=== PATIENT | female | born 1965 | race Caucasian/White ===

== ENCOUNTER 2020-02-15 15:05 | Outpatient (CLI) | payer BC, SELFPAY ==
--- NOTE | ~2020-02-15 | XR_ITS ---
EXAMINATION: XR hip RT min 2V DATE: 02/15/2020 16:25 INDICATION: Right hip joint pain. TECHNIQUE: 2 views of right hip were obtained. COMPARISON: None. FINDINGS: Bone alignment is normal. No fracture. There is mild right hip osteoarthritis. IMPRESSION: 1. Mild right hip osteoarthritis. Reviewed, dictated and finalized at location A.
--- NOTE | ~2020-02-15 | XR_ITS ---
EXAMINATION: XR hand LT 2V DATE: 02/15/2020 16:25 INDICATION: Arthralgias. TECHNIQUE: 2 views of left hand were obtained. COMPARISON: None. FINDINGS: Bone alignment is normal. No fracture. There is mild osteoarthritis of second and third met acarpophalangeal joints and fourth distal interphalangeal joint. IMPRESSION: 1. Mild polyarticular osteoarthritis. Reviewed, dictated and finalized at location A.
--- NOTE | ~2020-02-15 | XR_ITS ---
EXAMINATION: XR foot LT 2V DATE: 02/15/2020 16:25 INDICATION: Left foot joint pain. TECHNIQUE: 2 views of left foot were obtained. COMPARISON: None. FINDINGS: Bone alignment is normal. No acute fracture. 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 There is mild osteoarthritis of first metatarsophalangeal joint, fourth and fifth proximal interphalangeal joints, and talonavicular joint. There are enthesophytes a t the posterior and plantar aspects of calcaneus. IMPRESSION: 1. Mild polyarticular osteoarthritis. Reviewed, dictated and finalized at location A.
--- NOTE | ~2020-02-15 | XR_ITS ---
EXAMINATION: XR sacroiliac joints min 3V DATE: 02/15/2020 16:25 INDICATION: Polyarthralgias. Hip joint pain. TECHNIQUE: 3 views of the sacroiliac joints were obtained. COMPARISON: None. FINDINGS: Bone alignment is normal. No fracture. There is moderate lumbar spondylosis. The sacroiliac joints and hip joints are normal. No evidence of inflammatory arthropathy. IMPRESSION: 1. Normal sacroiliac joints. Reviewed, dictated and finalized at location A.
--- NOTE | ~2020-02-15 | XR_ITS ---
EXAMINATION: XR foot RT 2V DATE: 02/15/2020 16:25 INDICATION: Right foot arthralgias. TECHNIQUE: 2 views of right foot were obtained. COMPARISON: None. FINDINGS: Bone alignment is normal. No fracture. There is mild osteoarthritis of first metatarsophala ngeal joint and fifth proximal interphalangeal joint. There are enthesophytes at the posterior and pl misa aspects of calcaneal tuberosity. IMPRESSION: 1. Mild polyarticular osteoarthritis. Reviewed, dictated and finalized at location A.
--- NOTE | ~2020-02-15 | XR_ITS ---
EXAMINATION: XR hand RT 2V DATE: 02/15/2020 16:25 INDICATION: Right hand pain. TECHNIQUE: 2 views of right hand were obtained. COMPARISON: None. FINDINGS: Bone alignment is normal. There is periosteal reaction of diaphysis of fifth proximal phala nx. There is a nonaggressive expansile lytic lesion involving diaphysis of fourth proximal phalanx. T here is mild osteoarthritis of first and second metacarpophalangeal joints and third distal interphal angeal joint. IMPRESSION: 1. Periosteal reaction of diaphysis of fifth proximal phalanx, most likely a healing fracture. 2. Nonaggressive expansile lytic lesion of fourth proximal phalanx, most likely a benign lesion such as an enchondroma, aneurysmal bone cyst, or fibrous dysplasia. Reviewed, dictated and finalized at location A. IMPRESSION: 1. Periosteal reaction of diaphysis of fifth proximal phalanx, most likely a he aling fracture. 2. Nonaggressive expansile lytic lesion of fourth proximal phalanx, most likely a benign lesion such as an enchondroma, aneurysmal bone cyst, or fibrous dyspl lonnie.
== END 2020-02-15 15:06 | disposition home or self-care (01) ==
DX: M25.50 Pain in unspecified joint (principal); M19.072 Primary osteoarthritis, left ankle and foot; M19.071 Primary osteoarthritis, right ankle and foot; M89.9 Disorder of bone, unspecified; M16.11 Unilateral primary osteoarthritis, right hip; M19.042 Primary osteoarthritis, left hand
CPT/HCPCS: 72202; 73120; 73502; 73620

== ENCOUNTER 2020-02-15 15:32 | Outpatient (CLI) | payer BC, SELFPAY ==
--- NOTE | ~2020-02-15 | MM_ITS ---
EXAMINATION: MM screening parisa BI w shantelle HISTORY: Screening mammogram TECHNIQUE: Craniocaudal and mediolateral oblique 3-D tomosynthesis images were obtained and synthetic 2-D images were generated. CAD analysis was submitted and interpreted. COMPARISON: 08/05/2010 bilateral digital screening mammogram BREAST PARENCHYMAL COMPOSITION: There are scattered areas of fibroglandular density. FINDINGS: There is no evidence of suspicious mass, calcification, or architectural distortion to sugg est malignancy in either breast. There has been no suspicious interval change. IMPRESSION: 1. No mammographic evidence of malignancy. 2. Recommend routine screening mammography in one year. BI-RADS Category 1: Negative Reviewed, dictated and finalized at location A.
== END 2020-02-15 15:33 | disposition home or self-care (01) ==
PROVIDERS: Visit Provider Obstetrics & Gynecology
DX: Z12.31 Encounter for screening mammogram for malignant neoplasm of breast (principal)
CPT/HCPCS: 77063; 77067